=== PATIENT | female | born 2000 | race Caucasian/White ===

== ENCOUNTER 2023-11-08 01:15 | Emergency (ER) | payer OTHER ==
[2023-11-08] MEDS ORDERED: SODIUM CHLORIDE 0.9% 1,000 ML BAG ONE (02:05)
[2023-11-08] MEDS ORDERED: SODIUM CHLORIDE 0.9% 250 ML BAG ONE (02:05)
[2023-11-08] MEDS ORDERED: ADENOSINE 3 MG/ML 2 ML VIAL IVP ONE (02:36)
[2023-11-08] MEDS ORDERED: LORazepam 2 MG/ML INJ ONE ×4 (02:37→03:00)
[2023-11-08] MEDS ORDERED: levETIRAcetam IV 500 MG/5 ML VIAL ONE (02:39)
--- NOTE | 2023-12-19 18:23 | CT ---
EXAM: CT Head Without Intravenous Contrast CLINICAL HISTORY: patient is experiencing seizures, pt does not have history of seizures TECHNIQUE: Axial computed tomography images of the head/brain without intravenous contrast. CTDI is 49.2 mGy and DLP is 1197.7 mGy-cm. This CT exam was performed using one or more of the following dose reduction techniques: automated exposure control, adjustment of the mA and/or kV according to patient size, and/or use of iterative reconstruction technique. COMPARISON: No relevant prior studies available. FINDINGS: Brain: The territorial lino-white matter differentiation is maintained throughout. No acute intracranial hemorrhage. No midline shift or mass effect. Ventricles: The ventricles and sulci are commensurate with age. Bones/joints:Unremarkable. No acute fracture. Soft tissues:Unremarkable. Sinuses:Unremarkable as visualized. No acute sinusitis. Mastoid air cells:Unremarkable as visualized. No mastoid effusion. IMPRESSION: No acute intracranial hemorrhage. No midline shift or mass effect. Radiologist: Herman Boothe MD Electronically Signed: 11/08/23 03:54 Study first marked ready to read at 02:35, study last marked ready to read at 02:35, initial results transmitted at 03:54 [facility]
== END 2023-11-08 09:00 | disposition home or self-care (01) ==
LOC: EC 01:15
DX: R56.9 Unspecified convulsions (principal)
CPT/HCPCS: 70450; 99284

== ENCOUNTER → 2024-02-04 | Outpatient (CLI) | payer SELFPAY | LOC: CPPFTMAIN 14:52 | PROVIDERS: ATTEND Family Medicine | DX: Z87.09 Personal history of other diseases of the respiratory system (principal) | CPT/HCPCS: 94060; 94726; 94729 ==